=== PATIENT | male | born 2000 | race Caucasian/White ===

== ENCOUNTER 2024-03-05 22:23 | Emergency (ER) | payer OTHER, BC ==
[~2024-03-05] VITALS: Wt 86.2 kg
[2024-03-05] MEDS ORDERED: FLUORESCEIN SODIUM 1 MG STRIP OPH ONE (23:25)
[2024-03-05] MEDS ORDERED: Tetracaine Hydrochloride 0.5% 4 ML BOT OPH ONE (23:25)
[2024-03-06] MEDS ORDERED: Bacitracin Zinc 14 GM TUBE T ONE (00:05)
[2024-03-06] MEDS ORDERED: Dexamethasone/Tobramycin OPHTHALMIC 2.5 ML BOTTLE OPH ONE (00:05)
[2024-03-06] MEDS ORDERED: METHOCARBAMOL500 M1 PO (00:13)
[2024-03-06] MEDS ORDERED: NAPROXEN250 MG PO (00:13)
== END 2024-03-06 00:25 | disposition home or self-care (01) ==
LOC: ED 22:23
DX: S05.02XA Injury of conjunctiva and corneal abrasion without foreign body, left eye, initial encounter (principal); S05.01XA Injury of conjunctiva and corneal abrasion without foreign body, right eye, initial encounter; V89.2XXA Person injured in unspecified motor-vehicle accident, traffic, initial encounter; Y93.89 Activity, other specified; Y92.410 Unspecified street and highway as the place of occurrence of the external cause; Y99.8 Other external cause status